=== PATIENT | male | born 1975 | race Caucasian/White ===

== ENCOUNTER 2019-02-22 00:23 | Emergency (ER) | payer SELFPAY ==
[~2019-02-22] VITALS: Ht 198.1 cm; Wt 106.6 kg
--- NOTE | 2019-02-22 00:27 | ED.ADGEN ---
Past History Smoking: Cigarettes Adult General Chief Complaint Chief Complaint "." I ve got bad jaw pain.. "..". I ve got a lot of bad teeth..I am to get them all pulled .. next month or lst March... ".. " I always have dental pain... but it just got severe tonight... here on the Lt. ... upper into the Lt side upper jaw and face... I just could not take it any more..." HPI HPI Patient is a 44 year old male who presents with above hx and complaints of "jaw " pain x 1 week. Patient localizes major arteries pain is left upper dental area. Teeth 12, 13 and 14. No trismus. No adenopathy. Does have multiple areas of dental decay, gingivitis, dental fractures from decay. No pointing abscess noted. Patient denies any history immunosuppression. Patient denies any trauma. Patient poorly has been scheduled dental extractions and [facility] [place]. Review of Systems Review of Systems Constitutional: Denies fever or chills [] Eyes: Denies change in visual acuity, redness, or eye pain [] HENT: Denies nasal congestion or sore throat []patient has complaints of dental pain Respiratory: Denies cough or shortness of breath [] Cardiovascular: No additional information not addressed in HPI [] GI: Denies abdominal pain, nausea, vomiting, bloody stools or diarrhea [] : Denies dysuria or hematuria [] Musculoskeletal: Denies back pain or joint pain [] Integument: Denies rash or skin lesions [] Neurologic: Denies headache, focal weakness or sensory changes [] Endocrine: Denies polyuria or polydipsia [] All other systems were reviewed and found to be within normal limits, except as documented in this note. Family History Family History Noncontributory Current Medications Current Medications Current Medications Medications (Trade) Dose Ordered Sig/Julia Start Time Stop Time Status Last Admin Dose Admin Ceftriaxone Sodium (Rocephin Im) 1 gm 1X ONCE 02/22/19 01:00 02/22/19 01:01 DC 02/22/19 00:56 1 GM Ceftriaxone Sodium (Rocephin) 1 gm STK-MED ONCE 02/22/19 00:45 02/22/19 00:46 DC Diphenhydramine HCl (Benadryl) 50 mg STK-MED ONCE 02/22/19 01:03 02/22/19 01:04 DC Ketorolac Tromethamine (Toradol Im) 60 mg 1X ONCE 02/22/19 01:00 02/22/19 01:01 DC 02/22/19 00:57 60 MG Morphine Sulfate (Morphine 10mg Syringe) 10 mg 1X ONCE 02/22/19 01:00 02/22/19 01:01 DC 02/22/19 00:58 10 MG See nursing for home meds Allergies Allergies Allergies Coded Allergies Type Severity Reaction Last Updated Verified strawberry Allergy Unknown 02/22/19 Yes Physical Exam Physical Exam Constitutional: in acute distress, non-toxic appearance. [] HENT: Normocephalic, atraumatic, bilateral external ear rings, oropharynx moist , no oral exudates, nose ring, lip ring,. Multiples areas of dental decay. Lt upper face and maxillary sinus area tenderness on percussion. Eyes: PERRLA, EOMI, conjunctiva normal, no discharge. [] Neck: Normal range of motion, no tenderness, supple, no stridor. [] Cardiovascular:Heart rate regular rhythm, no murmur [] Lungs & Thorax: Bilateral breath sounds equal apex with scattered wheezes on auscultation [] Abdomen: Bowel sounds normal, soft, no tenderness, no masses, no pulsatile masses. [] Skin: Warm, dry, no erythema, no rash. [] Tattoos Back: No tenderness, no CVA tenderness. [] Extremities: No tenderness, no cyanosis, no clubbing, ROM intact, no edema. [] Neurologic: Alert and oriented X 3, normal motor function, normal sensory function, no focal deficits noted. [] Psychologic: Affect anxious, judgement normal, mood normal. [] Current Patient Data Vital Signs Vital Signs Date Time Temp Pulse Resp B/P (MAP) Pulse Ox O2 Delivery O2 Flow Rate FiO2 02/22/19 01:34 99 02/22/19 01:14 103 16 02/22/19 00:45 98.4 Room Air EKG EKG [] Radiology/Procedures Radiology/Procedures [] Course & Med Decision Making Course & Med Decision Making Pertinent Labs and Imaging studies reviewed. (See chart for details). Patient encouraged to stop smoking. Patient encouraged to keep follow-up with [facility]. Patient take Keflex 500 mg 3 times a day for the next 2 weeks. Patient take Tylenol or ibuprofen for pain. For marked pain may take Vicoprofen up 4 times a day. Further narcotics must be filled with primary care or with his Dentist. [] Final Impression Final Impression 1. Dental pain 2. Dental caries and fractures 3. Tobacco use[] Dragon Disclaimer Dragon Disclaimer This electronic medical record was generated, in whole or in part, using a voice recognition dictation system. Dragon Disclaimer This chart was dictated in whole or in part using Voice Recognition software in a busy, high-work load, and often noisy Emergency Department environment. It may contain unintended and wholly unrecognized errors or omissions. Discharge Summary Visit Information Final Diagnosis Problems Medical Problems: (1) Dental caries Status: Acute Brief Hospital Course Allergies Allergies Coded Allergies Type Severity Reaction Last Updated Verified strawberry Allergy Unknown 02/22/19 Yes Vital Signs Vital Signs Date Time Temp Pulse Resp B/P (MAP) Pulse Ox O2 Delivery O2 Flow Rate FiO2 02/22/19 01:34 99 02/22/19 01:14 103 16 02/22/19 00:45 98.4 Room Air Brief Hospital Course Mr. Escalante is a 44 old male who presented with dental pain. Discharge Information Condition at Discharge: Improved, Stable Disposition/Orders: D/C to Home Dischare Medications Current Medications Ketorolac Tromethamine (Toradol Im) 60 mg 1X ONCE IM Last administered on 02/22at 00:57; Admin Dose 60 MG; Start 02/22/19 at 01:00; Stop 02/22/19 at 01:01; Status DC Ceftriaxone Sodium (Rocephin Im) 1 gm 1X ONCE IM Last administered on at 00:56; Admin Dose 1 GM; Start 02/22/19 at 01:00; Stop 02/22/19 at 01:01; Status DC Morphine Sulfate (Morphine 10mg Syringe) 10 mg 1X ONCE SQ Last administered on 02/22/19at 00:58; Admin Dose 10 MG; Start 02/22/19 at 01:00; Stop 02/22/19 at 01:01; Status DC Ceftriaxone Sodium (Rocephin) 1 gm STK-MED ONCE .ROUTE ; Start 02/22/19 at 00:45 ; Stop 02/22/19 at 00:46; Status DC Diphenhydramine HCl (Benadryl) 50 mg 1X ONCE IM Last administered on at 01:08; Admin Dose 50 MG; Start 02/22/19 at 01:15; Stop 02/22/19 at 01:16; Status DC Diphenhydramine HCl (Benadryl) 50 mg STK-MED ONCE .ROUTE ; Start 02/22/19 at 01: 03; Stop 02/22/19 at 01:04; Status DC Active Scripts Active Keflex (Cephalexin) 500 Mg Capsule 500 Mg PO TID 14 Days Hydrocodone-Ibuprofen 7.5-200 (Hydrocodone/Ibuprofen) 1 Each Tablet 1 Tab PO PRN Q6HRS PRN MARK ELLINGTON MD Feb 22, 2019 00:27
[2019-02-22] MEDS ORDERED: CEPH-264 PO (00:37)
[2019-02-22] MEDS ORDERED: HYDR-1179 PO (00:37)
[2019-02-22] MEDS ORDERED: cefTRIAXone SODIUM 1 GM VIAL ONE (00:45)
[2019-02-22] MEDS ORDERED: MORPHINE SULFATE 10 MG/ML SYRINGE. SQ ONE (01:00)
[2019-02-22] MEDS ORDERED: cefTRIAXone IM 1 GM VIAL IM ONE (01:00)
[2019-02-22] MEDS ORDERED: KETOROLAC 60 MG/2 ML VIAL. IM ONE (01:00)
[2019-02-22] MEDS ORDERED: diphenhydrAMINE 50 MG/ML VIAL ONE (01:03)
[2019-02-22] MEDS ORDERED: diphenhydrAMINE 50 MG/ML VIAL IM ONE (01:15)
[2019-02-22 01:34] VITALS: BP 149/96
== END 2019-02-22 01:36 | disposition home or self-care (01) ==
LOC: ER 00:23
DX: S02.5XXA Fracture of tooth (traumatic), initial encounter for closed fracture (principal); K02.9 Dental caries, unspecified; F17.210 Nicotine dependence, cigarettes, uncomplicated; Z91.018 Allergy to other foods; X58.XXXA Exposure to other specified factors, initial encounter; Y93.89 Activity, other specified; Y92.89 Other specified places as the place of occurrence of the external cause; Y99.8 Other external cause status
CPT/HCPCS: 96372; 99283; J0696; J1200; J1885; J2270

== ENCOUNTER 2019-02-28 01:51 | Emergency (ER) | payer SELFPAY ==
[~2019-02-28 01:51] MED LIST: CEPH-264 PO; HYDR-1179 PO
--- NOTE | 2019-02-28 02:09 | ED.ADGEN ---
Past History Past Medical History: Diabetes, Migraines Smoking: Cigarettes Alcohol Use: Occasionally Drug Use: None Adult General Chief Complaint Chief Complaint ".. I got a really bad headache.. I get migraines.. but this is worse than my usual headache..." HPI HPI Patient is a 44 year old male who presents with above hx and complaints of severe migraine. Pt recently seen on 02/22/2019 for dental caries and dental pain. Patient denies any trauma. Patient's pain is primarily on left forehead temporal area. No history of immunosuppression. No history of IV drug use. Patient denies any history of illicit drug use. Patient has a history of migraines, usually resolving [id number] meds. No history of travel . No significant history of specific ill contacts. Is on Keflex for prior dental caries and dental pain visit to ED on 02/22/19. Review of Systems Review of Systems Constitutional: Denies fever or chills [] Eyes: Denies change in visual acuity, redness, or eye pain [] HENT: Denies nasal congestion or sore throat [] Respiratory: Denies cough or shortness of breath [] Cardiovascular: No additional information not addressed in HPI [] GI: Denies abdominal pain, nausea, vomiting, bloody stools or diarrhea [] : Denies dysuria or hematuria [] Musculoskeletal: Denies back pain or joint pain [] Integument: Denies rash or skin lesions [] Neurologic: Complains of headache,. Denies focal weakness or sensory changes [] Endocrine: Denies polyuria or polydipsia [] All other systems were reviewed and found to be within normal limits, except as documented in this note. Family History Family History Noncontributory Current Medications Current Medications Current Medications Medications (Trade) Dose Ordered Sig/Julia Start Time Stop Time Status Last Admin Dose Admin Ceftriaxone Sodium 1 gm/ Sodium Chloride 50 ml @ 100 mls/hr 1X ONCE 02/28/19 02:45 02/28/19 03:14 DC 02/28/19 03:02 100 MLS/HR Ceftriaxone Sodium (Rocephin) 1 gm STK-MED ONCE 02/28/19 02:57 02/28/19 02:58 DC Diphenhydramine HCl (Benadryl) 50 mg 1X ONCE 02/28/19 02:15 02/28/19 03:09 DC 02/28/19 03:03 50 MG Magnesium Hydroxide (Milk Of Magnesia) 2,400 mg 1X ONCE 02/28/19 04:30 02/28/19 04:41 DC Prochlorperazine Edisylate (Compazine) 10 mg 1X ONCE 02/28/19 02:15 02/28/19 03:09 DC 02/28/19 03:03 10 MG Sodium Chloride 50 ml @ As Directed STK-MED ONCE 02/28/19 02:58 02/28/19 02:59 DC Sumatriptan Succinate (Imitrex) 6 mg 1X ONCE 02/28/19 04:30 02/28/19 04:41 DC Allergies Allergies Allergies Coded Allergies Type Severity Reaction Last Updated Verified strawberry Allergy Unknown 02/22/19 Yes Physical Exam Physical Exam Constitutional: Moderately acute distress, non-toxic appearance. []Blue green hair. HENT: Normocephalic, atraumatic, bilateral external ears normal, oropharynx moist, no oral exudates, nose normal. []No temporal artery tenderness. Dental Caries Eyes: PERRLA, EOMI, conjunctiva normal, no discharge. [] Neck: Normal range of motion, no tenderness, supple, no stridor. [] Cardiovascular:Heart rate regular rhythm, no murmur [] Lungs & Thorax: Bilateral breath sounds with apex with scattered wheezes on auscultation [] Abdomen: Bowel sounds normal, soft, no tenderness, no masses, no pulsatile masses. [] Skin: Warm, dry, no erythema, no rash. [] Tattoos Back: No tenderness, no CVA tenderness. [] Extremities: No tenderness, no cyanosis, no clubbing, ROM intact, no edema. [] Neurologic: Alert and oriented X 3, normal motor function, normal sensory function, no focal deficits noted. []DTRs +2 patella. [employer] Service Representative equal. Psychologic: Affect anxious, judgement normal, mood normal. [] Current Patient Data Lab Results Laboratory Tests Test 02/28/19 02:27 02/28/19 02:30 White Blood Count 12.0 x10^3/uL (4.0-11.0) H Red Blood Count 4.50 x10^6/uL (4.30-5.70) Hemoglobin 13.6 g/dL (13.0-17.5) Hematocrit 39.6 % (39.0-53.0) Mean Corpuscular Volume 88 fL (79-100) Mean Corpuscular Hemoglobin 30 pg (25-35) Mean Corpuscular Hemoglobin Concent 34 g/dL (31-37) Red Cell Distribution Width 12.9 % (11.5-14.5) Platelet Count 305 x10^3/uL (140-400) Neutrophils (%) (Auto) 73 % (31-73) Lymphocytes (%) (Auto) 21 % (24-48) L Monocytes (%) (Auto) 4 % (0-9) Eosinophils (%) (Auto) 1 % (0-3) Basophils (%) (Auto) 1 % (0-3) Neutrophils # (Auto) 8.8 x10^3uL (1.8-7.7) H Lymphocytes # (Auto) 2.5 x10^3/uL (1.0-4.8) Monocytes # (Auto) 0.5 x10^3/uL (0.0-1.1) Eosinophils # (Auto) 0.1 x10^3/uL (0.0-0.7) Basophils # (Auto) 0.1 x10^3/uL (0.0-0.2) Erythrocyte Sedimentation Rate 7 (0-15) Prothrombin Time 10.3 SEC (9.4-11.4) Prothrombin Time INR 1.0 (0.9-1.1) PTT 23 SEC (23-33) Sodium Level 136 mmol/L (136-145) Potassium Level 4.0 mmol/L (3.5-5.1) Chloride Level 99 mmol/L (98-107) Carbon Dioxide Level 27 mmol/L (21-32) Anion Gap 10 (6-14) Blood Urea Nitrogen 15 mg/dL (8-26) Creatinine 0.8 mg/dL (0.7-1.3) Estimated GFR (Cockcroft-Gault) 104.5 Glucose Level 373 mg/dL (70-99) H Calcium Level 9.0 mg/dL (8.5-10.1) Magnesium Level 1.5 mg/dL (1.8-2.4) L Creatine Kinase 117 U/L (39-308) Troponin I Quantitative < 0.017 ng/mL (0-0.055) Urine Collection Type Unknown Urine Color Yellow Urine Clarity Clear Urine pH 6.0 Urine Specific [place] 1.010 Urine Protein Neg (NEG-TRACE) Urine Glucose (UA) >=1000 mg/dL (NEG) Urine Ketones (Stick) Neg mg/dL (NEG) Urine Blood Neg (NEG) Urine Nitrite Neg (NEG) Urine Bilirubin Neg (NEG) Urine Urobilinogen Dipstick 0.2 mg/dL (0.2 mg/dL) Urine Leukocyte Esterase Neg (NEG) Urine RBC 0 /HPF (0-2) Urine WBC Rare /HPF (0-4) Urine Squamous Epithelial Cells Occ /LPF Urine Bacteria 0 /HPF (0-FEW) Urine Opiates Screen Pos (NEG) Urine Methadone Screen Neg (NEG) Urine Barbiturates Neg (NEG) Urine Phencyclidine Screen Neg (NEG) Urine Amphetamine/Methamphetamine Neg (NEG) Urine Benzodiazepines Screen Neg (NEG) Urine Cocaine Screen Neg (NEG) Urine Cannabinoids Screen Neg (NEG) Urine Ethyl Alcohol Neg (NEG) EKG EKG [] Radiology/Procedures Radiology/Procedures My interpretation CT head shows no shift, mass, edema, bleed, or fracture. No obvious abscess. See formal report when available.[] Course & Med Decision Making Course & Med Decision Making Pertinent Labs and Imaging studies reviewed. (See chart for details) Pt. declines admission. Pt. declines spinal tap. Pt. exhibit UCAR capacity ... Pt. given Rx for Imitrex 100 to take at start of migraine headache. Zofran for nausea and vomiting. Must follow u p with primary. Continue Keflex as previous directed. Encouraged patient to stop smoking. [] Final Impression Final Impression 1. Hx. Migraines 2. Multiple Dental Caries[] 3. Leukocytosis 12. 4. DM - 373 5. Hypomagnesium 1.5 Dragon Disclaimer Dragon Disclaimer This electronic medical record was generated, in whole or in part, using a voice recognition dictation system. Discharge Summary Visit Information Final Diagnosis Problems Medical Problems: (1) Diabetes Status: Acute (2) Headache Status: Acute Brief Hospital Course Allergies Allergies Coded Allergies Type Severity Reaction Last Updated Verified strawberry Allergy Unknown 02/22/19 Yes Lab Results Laboratory Tests Test 02/28/19 02:27 02/28/19 02:30 White Blood Count 12.0 x10^3/uL (4.0-11.0) Red Blood Count 4.50 x10^6/uL (4.30-5.70) Hemoglobin 13.6 g/dL (13.0-17.5) Hematocrit 39.6 % (39.0-53.0) Mean Corpuscular Volume 88 fL (79-100) Mean Corpuscular Hemoglobin 30 pg (25-35) Mean Corpuscular Hemoglobin Concent 34 g/dL (31-37) Red Cell Distribution Width 12.9 % (11.5-14.5) Platelet Count 305 x10^3/uL (140-400) Neutrophils (%) (Auto) 73 % (31-73) Lymphocytes (%) (Auto) 21 % (24-48) Monocytes (%) (Auto) 4 % (0-9) Eosinophils (%) (Auto) 1 % (0-3) Basophils (%) (Auto) 1 % (0-3) Neutrophils # (Auto) 8.8 x10^3uL (1.8-7.7) Lymphocytes # (Auto) 2.5 x10^3/uL (1.0-4.8) Monocytes # (Auto) 0.5 x10^3/uL (0.0-1.1) Eosinophils # (Auto) 0.1 x10^3/uL (0.0-0.7) Basophils # (Auto) 0.1 x10^3/uL (0.0-0.2) Erythrocyte Sedimentation Rate 7 (0-15) Prothrombin Time 10.3 SEC (9.4-11.4) Prothromb Time International Ratio 1.0 (0.9-1.1) Activated Partial Thromboplast Time 23 SEC (23-33) Sodium Level 136 mmol/L (136-145) Potassium Level 4.0 mmol/L (3.5-5.1) Chloride Level 99 mmol/L (98-107) Carbon Dioxide Level 27 mmol/L (21-32) Anion Gap 10 (6-14) Blood Urea Nitrogen 15 mg/dL (8-26) Creatinine 0.8 mg/dL (0.7-1.3) Estimated GFR (Cockcroft-Gault) 104.5 Glucose Level 373 mg/dL (70-99) Calcium Level 9.0 mg/dL (8.5-10.1) Magnesium Level 1.5 mg/dL (1.8-2.4) Creatine Kinase 117 U/L (39-308) Troponin I Quantitative < 0.017 ng/mL (0-0.055) Urine Collection Type Unknown Urine Color Yellow Urine Clarity Clear Urine pH 6.0 Urine Specific [place] 1.010 Urine Protein Neg (NEG-TRACE) Urine Glucose (UA) >=1000 mg/dL (NEG) Urine Ketones (Stick) Neg mg/dL (NEG) Urine Blood Neg (NEG) Urine Nitrite Neg (NEG) Urine Bilirubin Neg (NEG) Urine Urobilinogen Dipstick 0.2 mg/dL (0.2 mg/dL) Urine Leukocyte Esterase Neg (NEG) Urine RBC 0 /HPF (0-2) Urine WBC Rare /HPF (0-4) Urine Squamous Epithelial Cells Occ /LPF Urine Bacteria 0 /HPF (0-FEW) Urine Opiates Screen Pos (NEG) Urine Methadone Screen Neg (NEG) Urine Barbiturates Neg (NEG) Urine Phencyclidine Screen Neg (NEG) Urine Amphetamine/Methamphetamine Neg (NEG) Urine Benzodiazepines Screen Neg (NEG) Urine Cocaine Screen Neg (NEG) Urine Cannabinoids Screen Neg (NEG) Urine Ethyl Alcohol Neg (NEG) Brief Hospital Course Mr. Escalante is a 44 old male who presented with migraine headache and diabetes. Discharge Information Condition at Discharge: Improved, Stable Disposition/Orders: D/C to Home Dischare Medications Current Medications Prochlorperazine Edisylate (Compazine) 10 mg 1X ONCE IV Last administered on at 03:03; Admin Dose 10 MG; Start 02/28/19 at 02:15; Stop 02/28/19 at 03:09; Status DC Diphenhydramine HCl (Benadryl) 50 mg 1X ONCE IV Last administered on 02/28/19at 03:03; Admin Dose 50 MG; Start 02/28/19 at 02:15; Stop 02/28/19 at 03:09; Status DC Ceftriaxone Sodium 1 gm/ Sodium Chloride 50 ml @ 100 mls/hr 1X ONCE IV Last administered on 02/28/19at 03:02; Admin Dose 100 MLS/HR; Start 02/28/19 at 02:45; Stop 02/28/19 at 03:14; Status DC Ceftriaxone Sodium (Rocephin) 1 gm STK-MED ONCE .ROUTE ; Start 02/28/19 at 02:57 ; Stop 02/28/19 at 02:58; Status DC Sodium Chloride 50 ml @ As Directed STK-MED ONCE .ROUTE ; Start 02/28/19 at 02:58 ; Stop 02/28/19 at 02:59; Status DC Magnesium Hydroxide (Milk Of Magnesia) 2,400 mg 1X ONCE PO ; Start 02/28/19 at 04:30; Stop 02/28/19 at 04:41; Status DC Sumatriptan Succinate (Imitrex) 6 mg 1X ONCE SQ ; Start 02/28/19 at 04:30; Stop 02/28/19 at 04:41; Status DC Active Scripts Active Zofran (Ondansetron Hcl) 8 Mg Tablet 8 Mg PO QIDPRN PRN Zofran (Ondansetron Hcl) 8 Mg Tablet 8 Mg PO QIDPRN PRN Imitrex (Sumatriptan Succinate) 100 Mg Tablet 100 Mg PO 1X Keflex (Cephalexin) 500 Mg Capsule 500 Mg PO TID 14 Days Hydrocodone-Ibuprofen 7.5-200 (Hydrocodone/Ibuprofen) 1 Each Tablet 1 Tab PO PRN Q6HRS PRN Dragon Disclaimer This chart was dictated in whole or in part using Voice Recognition software in a busy, high-work load, and often noisy Emergency Department environment. It may contain unintended and wholly unrecognized errors or omissions. MARK ELLINGTON MD Feb 28, 2019 02:08
[2019-02-28] MEDS ORDERED: diphenhydrAMINE 50 MG/ML VIAL IV ONE (02:15)
[2019-02-28] MEDS ORDERED: PROCHLORPERAZINE 10 MG/2 ML VIAL. IV ONE (02:15)
[2019-02-28] MEDS ORDERED: cefTRIAXone SODIUM 1 GM VIAL ONE (02:57)
[2019-02-28] MEDS ORDERED: IV NORMAL SALINE 50ML 50 ML ONE (02:58)
[2019-02-28 03:01] LABS: BASO # 0.1 x10^3/uL (0.0-0.2); BASO % 1 % (0-3); EOS # 0.1 x10^3/uL (0.0-0.7); EOS % 1 % (0-3); HEMATOCRIT 39.6 % (39.0-53.0); HEMOGLOBIN 13.6 g/dL (13.0-17.5); LYMPH # 2.5 x10^3/uL (1.0-4.8); LYMPH % 21 % (24-48); MEAN CORPUSCULAR HEMOGLOBIN 30 pg (25-35); MEAN CORPUSCULAR HGB CONC 34 g/dL (31-37); MEAN CORPUSCULAR VOLUME 88 fL (79-100); MONO # 0.5 x10^3/uL (0.0-1.1); MONO % 4 % (0-9); NEUT # 8.8 x10^3uL (1.8-7.7); NEUT % 73 % (31-73); PLATELET COUNT 305 x10^3/uL (140-400); RED CELL DISTRIBUTION WIDTH 12.9 % (11.5-14.5)
--- NOTE | 2019-02-28 03:06 | RAD ---
CT Head W/O Contrast: History: Headache Comparison: none Axial images were obtained without contrast. The luther and white matter appears normal and symmetrical for the patients age. There is no mass effect, extraaxial fluid collections or hydrocephalus. There is no gross bleed. There is no focal loss of luther-white matter distinction to suggest acute ischemia, i.e. stroke. Impression: No acute findings. RS Compliance Statement: One or more of the following individualized dose reduction techniques were utilized for this examination: 1. Automated exposure control 2. Adjustment of the mA and/or kV according to patient size 3. Use of iterative reconstruction technique Electronically signed by: Brendon John III, MD (02/28/2019 3:03 AM) [id number]
--- NOTE | 2019-02-28 03:06 | EKG ---
[address] [address] Test Date: 2019-02-28 Test Time: 03:04:46 Pat Name: SONAM DAVIS Department: Room: Gender: M Vulnerability Assessment Analyst: BUSTER : 1975 Requested By: MARK ELLINGTON Order Number: [id number] Reading MD: Lupillo Harrington MD Measurements Intervals [place] Rate: 92 P: 41 NE: 192 QRS: 13 QRSD: 90 T: 32 QT: 348 QTc: 435 Interpretive Statements SINUS RHYTHM Electronically Signed On 03-04-2019 15:48:05 CDT by Lupillo Harrington MD
[2019-02-28 03:16] LABS: BACTERIA,URINE 0 /HPF (0-FEW); BILIRUBIN,URINE NEG (NEG); CLARITY,URINE CLEAR; COLOR,URINE YELLOW; GLUCOSE,URINE >=1000 mg/dL (NEG); NITRITE,URINE NEG (NEG); RBC,URINE 0 /HPF (0-2); SQUAMOUS EPITHELIAL CELL,UR OCC /LPF; UROBILINOGEN,URINE 0.2 mg/dL (0.2 mg/dL); WBC,URINE RARE /HPF (0-4)
[2019-02-28 03:25] LABS: BARBITURATES NEG (NEG); BENZODIAZEPINES NEG (NEG); CANNABINOIDS NEG (NEG); COCAINE NEG (NEG); METHADONE NEG (NEG); OPIATES POS (NEG); PHENCYCLIDINE NEG (NEG)
[2019-02-28 03:26] LABS: CREATININE 0.8 mg/dL (0.7-1.3); GFR 104.5; MAGNESIUM 1.5 mg/dL (1.8-2.4)
[2019-02-28 03:28] LABS: AMPHETAMINE/METHAMPHETAMINE NEG (NEG)
--- NOTE | 2019-02-28 03:28 | RAD ---
CT maxillofacial without contrast History: Facial pain Axial helical images of the face were obtained without contrast. Axial, sagittal and coronal reconstruction was performed. The nasal septum is mostly midline. The ostiomeatal complexes are narrow but patent. The paranasal sinuses are clear. The visualized osseous structures appear intact. The orbits appear normal. Impression: No acute findings. RS Compliance Statement: One or more of the following individualized dose reduction techniques were utilized for this examination: 1. Automated exposure control 2. Adjustment of the mA and/or kV according to patient size 3. Use of iterative reconstruction technique Electronically signed by: Brendon John III, MD (02/28/2019 3:24 AM) [id number]
[2019-02-28 03:59] LABS: SEDIMENTATION RATE 7 (0-15)
[2019-02-28] MEDS ORDERED: SUMA100T3 PO (04:10)
[2019-02-28 04:18] VITALS: BP 138/85
[2019-02-28] MEDS ORDERED: ONDA8TAB9 PO ×2 (04:23→04:36)
[2019-02-28] MEDS ORDERED: MAGNESIUM HYDROXIDE 2,400 MG/30 ML ORAL.SUSP. PO ONE (04:30)
[2019-02-28] MEDS ORDERED: SUMAtriptan SUCC 6 MG/0.5 ML VIAL SQ ONE (04:30)
== END 2019-02-28 04:30 | disposition home or self-care (01) ==
LOC: ER 01:51
DX: R51 Headache (principal); G43.909 Migraine, unspecified, not intractable, without status migrainosus; K02.9 Dental caries, unspecified; D72.829 Elevated white blood cell count, unspecified; E11.9 Type 2 diabetes mellitus without complications; E83.42 Hypomagnesemia; F17.210 Nicotine dependence, cigarettes, uncomplicated; Z91.018 Allergy to other foods
CPT/HCPCS: 36415; 70450; 70486; 80048; 80307; 81001; 82550; 83735; 84484; 85025; 85610; 85651; 85730; 93005; 96365; 96375; 99284; J0696; J0780; J1200